=== PATIENT | female | born 2000 | race Two or more races ===

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

== ENCOUNTER 2024-08-24 04:18 | Emergency (ER) | payer MEDICAID, SELFPAY ==
[2024-08-24 04:19] VITALS: BMI 31.8
--- NOTE | 2024-08-24 04:24 | XR_ITS ---
Examination: PA lateral chest 2 views Technique: Upright PA lateral chest 2 views Exam date and time: August 24, 2024 0438 hrs. Comparison October 26, 2004 Indications: Right chest pain beginning 3 days ago Findings: Normal heart size No lobar pneumonia or pulmonary edema The osseous structures are intact Impression: No pneumonia or pulmonary edema
--- NOTE | 2024-08-24 04:24 | EKG_ITS ---
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
--- NOTE | 2024-08-24 04:27 | PD.EDRME ---
Rapid Medical Screening Exam RME Arrival date/time: 08/24/24 04:18 24 yr f present to ED for c.o of right/chest pain for 3 days I have greeted and performed a focused initial assessment of this patient. A comprehensive ED assessment and evaluation of the patient, analysis of all test results, and completion of the medical decision making process will be conducted by additional ED providers. Chief Complaint: Chest Pain Time Seen by Provider: 08/24/24 04:22
[2024-08-24 04:34] VITALS: BP 106/73; PULSE 71; RESP 18; TEMP 36.9; O2SAT 98
[2024-08-24 05:53] LABS: Basophils # (Auto) 0.1 Thou/mm3 (0.0-0.2); Basophils % (Auto) 1 % (0-2.5); Eosinophils # (Auto) 0.1 Thou/mm3 (0.0-0.5); Eosinophils % (Auto) 2 % (0-10); Hematocrit 36.4 % (36.0-46.0); Immature Granulocytes % (Auto) 0 % (0-0); Immature Granulocytes Auto 0.02 Thou/mm3 (0.00-0.00); Lymphocytes # (Auto) 2.2 Thou/mm3 (1.0-4.8); Lymphocytes % (Auto) 27 % (10-50); Mean Corpuscular Hemoglobin 28.5 pg (25.0-35.0); Mean Corpuscular Volume 87 fL (80-100); Monocytes # (Auto) 0.5 Thou/mm3 (0.0-0.8); Monocytes % (Auto) 6 % (0-12); Neutrophils # (Auto) 5.3 Thou/mm3 (1.8-7.7); Neutrophils % (Auto) 65 % (37-80); Nucleated Red Blood Cell % 0 /100 WBC (0); Platelet Count 239 Thou/mm3 (140-440); RDW Standard Deviation 38.7 fL (36.4-46.3); Red Blood Count 4.21 Miln/mm3 (4.00-5.20); White Blood Count 8.2 Thou/mm3 (3.6-11.0)
[2024-08-24 06:31] LABS: HCG,Qualitative Serum Negative
[2024-08-24 06:39] LABS: Alanine Aminotransferase < 7 U/L (10-49); Albumin/Globulin Ratio 1.9 (1.2-2.2); Alkaline Phosphatase 83 U/L (46-116); Anion Gap 7 (7-16); Aspartate Amino Transferase < 10 U/L (0-34); BUN/Creatinine Ratio 10 Ratio (12-20); Bilirubin,Total 0.5 mg/dL (0.3-1.2); Blood Urea Nitrogen 9 mg/dL (9-23); Calcium 9.9 mg/dL (8.3-10.6); Calcium (Corrected) 9.9 mg/dL (8.5-10.1); Carbon Dioxide 29.8 mMol/L (20.0-31.0); Chloride 103 mMol/L (98-107); Creatinine (Component) 0.9 mg/dL (0.6-1.3); Estimated Creatinine Clearance 105.7 mL/min (>60); Globulin 2.7 gm/dL (2.3-3.5); Glucose 105 mg/dL (74-106); Lipase 31 U/L (12-53); Osmolality,Calculated 278 (275-295); Potassium 4.1 mMol/L (3.4-5.1); Sodium 140 mMol/L (136-145); Total Protein 7.7 gm/dL (5.7-8.2); Troponin I < 0.002 ng/mL (0.0-0.045); eGFR > 60 See Note
--- NOTE | 2024-08-24 07:06 | PD.EDCHEST ---
ED Chest Pain RME/HPI General Chief Complaint: Chest Pain Stated Complaint: RIGHT SIDED CHEST PAIN WORSEN W/BREATHING X3 DAYS Time Seen by Provider: 08/24/24 04:22 Arrival date/time: 08/24/24 04:18 24-year-old female presents to the emergency department complains right-sided chest pain worse with movement patient also reports pain with deep inspiration on the right side patient reports no left-sided chest pain no dizziness or weakness Limitations: no limitations RME / HPI RME / HPI narrative: 08/24/24 04:18 24 yr f present to ED for c.o of right/chest pain for 3 days I have greeted and performed a focused initial assessment of this patient. A comprehensive ED assessment and evaluation of the patient, analysis of all test results, and completion of the medical decision making process will be conducted by additional ED providers. Related Data Home Medications ?Medication ?Instructions ?Recorded ?Confirmed prenat.vits,dianna,[id number] 1 tab PO QDAY 11/29/20 12/13/20 Previous Rx's ?Medication ?Instructions ?Recorded acetaminophen 500 mg tablet 1,000 mg (2 x 500 mg) PO Q6H PRN 12/15/20 (Tylenol Extra Strength) pain #120 tabs docusate sodium 100 mg capsule 100 mg PO BID #60 caps 12/15/20 (Colace) ferrous fumarate 325 mg (106 mg 325 mg PO BID #60 tabs 12/15/20 iron) tablet (Ferretts) ibuprofen 600 mg tablet 600 mg PO Q6H PRN pain #120 tabs 12/15/20 ondansetron 4 mg disintegrating 4 mg PO Q8H PRN nausea and 04/27/23 tablet vomiting #30 tabs pantoprazole 40 mg tablet,delayed 40 mg PO QDAY #30 tabs 04/27/23 release (Protonix) cyclobenzaprine 10 mg tablet 10 mg PO TID PRN muscle spasm 10 08/24/24 days #30 tab-caps ibuprofen 800 mg tablet 800 mg PO TID PRN pain #30 tabs 08/24/24 Allergies Allergy/AdvReac Type Severity Reaction Status Date / Time amoxicillin Allergy Severe Anaphylaxis Verified 08/24/24 04:21 Review of Systems Review of Systems Systems Reviewed: All systems reviewed, normal except as documented Constitutional Constitutional: Reports system reviewed and no additional complaints, except as documented, Denies fever(s) and Denies headache(s) Eyes Eyes: Reports system reviewed and no additional complaints, except as documented and Denies blurry vision ENT Ears, Nose, Mouth, and Throat: Reports system reviewed and no additional complaints, except as documented, Denies headache(s), Denies nasal congestion and Denies nasal discharge Cardiovascular Cardiovascular: Reports system reviewed and no additional complaints, except as documented, Reports chest pain, Reports dyspnea and Reports other (Right-sided chest pain, rib pain) Respiratory Respiratory: Reports system reviewed and no additional complaints, except as documented, Denies chest congestion, Denies cough and Reports dyspnea Gastrointestinal Gastrointestinal: Reports system reviewed and no additional complaints, except as documented and Denies abdominal pain Integumentary/Breasts Skin/Breast: Reports system reviewed and no additional complaints, except as documented and Denies rash Neurologic Neurologic: Reports system reviewed and no additional complaints, except as documented, Reports as per HPI and Denies headache(s) Past Medical History Past Medical History NEUROLOGIC: Negative Neurological Disorders, Cerebrovascular Accident or Transient Ischemic Attacks (TIA) CARDIAC: Negative Cardiac Disorders, Myocardial Infarction, Cardiac Arrhythmia, Angina or Congestive Heart Failure RESPIRATORY: Positive Bronchitis (4yrs old); Negative Chronic Obstructive Pulmonary Disease (COPD), Emphysema or Cystic Fibrosis GASTROINTESTINAL: Negative Gastrointestinal Disorders, Liver Cancer, Hepatitis, Pancreatic Cancer or Colorectal Cancer GENITOURINARY: Positive Genitourinary Disorders (uti's); Negative Renal Disease or Prostate Cancer REPRODUCTIVE: Negative Breast Cancer or Testicular Cancer MUSCULOSKELETAL: Negative Musculoskeletal Disorders or Bone Cancer ENT: Negative Blind or Deafness ENDOCRINE: Negative Endocrine Disorders, Diabetes Mellitus Type 1 or Diabetes Mellitus Type 2 HEMATOLOGIC: Positive Blood Disorders and Anemia (this ) PSYCHO/SOCIAL: Positive Anxiety; Negative Psychiatric Problems OTHER HISTORY: Negative Hospitalization, Autoimmune Disease, Down Syndrome, Developmental Delay, Shingles, Falls, Blood Transfusions, Blood Transfusion Reaction, Anesthesia Reactions, Organ Transplant, Chemotherapy, Radiation Therapy, Hyperbaric Therapy, MRSA, VRSA, Vancomycin-Resistant Enterococci, Human Immunodeficiency Virus (HIV), Chicken Pox, Measles, Mumps, Rubella (Bengali Measles), Pertussis, Clostridium Difficile, Cancer, Breast Cancer, Cervical Cancer, Colorectal Cancer, Lung Cancer, Ovarian Cancer, Prostate Cancer or Testicular Cancer Family History FAMILY HISTORY: Positive Family Cancer (grandmother); Negative Family Psychiatric Problems, Family Respiratory Disorders, Family Cardiac Disorders, Family Gastrointestinal Problems, Family Surgery or Family Anesthesia Reaction Surgical History SURGICAL: Negative Section or Organ Transplant Social History SMOKING STATUS: Never smoker SUBSTANCE USE: does not use ED Exam General Limitations: Present no limitations General appearance: Present alert and in no apparent distress Head Head exam: Present atraumatic, normocephalic and normal inspection Eye Eye exam: Present normal appearance, PERRL and EOMI; Absent conjunctival injection ENT ENT exam: Present normal exam, normal oropharynx and mucous membranes moist Neck Neck exam: Present normal inspection, full ROM and trachea midline Chest Chest inspection: Present normal inspection and symmetric chest wall rise Respiratory Respiratory exam: Present normal lung sounds bilaterally; Absent respiratory distress, wheezes, stridor or accessory muscle use Cardiovascular Cardiovascular exam: Present regular rate, normal rhythm and normal heart sounds; Absent bradycardia, tachycardia, irregular rhythm or JVD Abdominal Exam Abdominal exam: Present soft and normal bowel sounds; Absent distention, tenderness, guarding, rebound or rigidity Extremities Exam Extremities exam: Present normal inspection and full ROM Back Exam Back exam: Present normal inspection and full ROM Neurological Exam Neurological exam: Present alert, oriented X3 and CN II-XII intact Psychiatric Psychiatric exam: Present normal affect and normal mood Skin Skin exam: Present warm, dry, intact and normal color Course Quality Measures none Orders Category Date Time Status EKG (ED ONLY) *Do not use* NOW Care 08/24/24 04:24 Completed EKG (ED Only) Stat Exams 08/24/24 04:24 Draft XR chest 2V Stat Exams 08/24/24 04:24 Completed CBC Stat Lab 08/24/24 05:39 Completed CMP [Comprehensive Metabolic Panel] Stat Lab 08/24/24 05:39 Completed HCG,Qualitative Serum Stat Lab 08/24/24 05:39 Completed Lipase Stat Lab 08/24/24 05:39 Completed Troponin I Stat Lab 08/24/24 05:39 Completed Vital Signs Vital signs: Vital Signs Temperature 98.4 F 08/24/24 04:34 Pulse Rate 71 08/24/24 04:34 Respiratory Rate 18 08/24/24 04:34 Blood Pressure 106/73 08/24/24 04:34 Pulse Oximetry (%) 98 08/24/24 04:34 Oxygen Delivery Method Room Air 08/24/24 04:34 O2 saturation 98% room air within normal limits Procedures -ED EKG Interpretation #1: Date of EK08/24/24 Time of EK:37 Rate: 93 Interpretation: Reviewed by me EKG Impression: Normal sinus rhythm, No acute ST-T changes, No ectopy, Sinus arrhythmia, No ischemic changes, Normal QRS, Normal intervals and Normal axis Chest Pain MDM Narrative [facility] Narrative:: 24-year-old female presents to the emergency department complains right-sided chest pain worse with movement patient also reports pain with deep inspiration on the right side patient reports no left-sided chest pain no dizziness or weakness On exam patient well-appearing patient does not appear ill or toxic and in no acute distress Lab work chest x-ray EKG obtained No acute emergent findings noted On exam patient does have pain on palpation of the right side of the ribs and pain worse with movement symptoms not cardiac in nature Patient discharged home in no distress to follow-up with primary care doctor in the next 24 to 48 hours and for any worsening symptoms to return to the ER immediately Patient data External records reviewed:: [facility] previous records Clinical information provided by:: patient Social determinants that could affect healthcare access:: none Patient has the following chronic illnesses:: None How is presenting disease/condition affected by chronic disease/condition?: no chronic disease Evaluation data The following diagnostics were reviewed and interpreted by me:: lab results, radiology exam(s) and EKG tracing(s) Lab and/or radiology exams considered but not ordered:: Labs, radiology, EKG obtained Interpretation Summary: Reviewed by me Medications / Prescriptions Medications or Prescriptions considered but not ordered:: Given Medication administrations:: Given Consultations Consultation(s) initiated? (list below): No Diagnosis Chest Pain Differential Diagnosis: fracture of rib, pneumothorax, st elevation myocardial infarction and costochondritis Most likely diagnosis given after review of the tests above:: Chest pain Admission Indicated Admission indicated?: not indicated Admission Request Was there a request for admission?: No Disposition Plan Disposition Plan: Discharge Discharge Attestation Discharge Attestation: The patient and all family members were given an opportunity to ask questions and understood the discharge instructions. Discharge instructions specifically effects, indications for sooner follow up or return to the emergency department, and the expected course of current diagnosis. Patient condition: Stable Discharge Plan Plan Patient Disposition: HOME (Self Care) Disposition Comment: Stable Prescriptions/Referrals Prescriptions/Med Rec: New cyclobenzaprine 10 mg tablet 10 mg PO TID PRN (Reason: muscle spasm) 10 Days Qty: 30 0RF ibuprofen 800 mg tablet 800 mg PO TID PRN (Reason: pain) Qty: 30 0RF No Action prenat.vits,dianna,[id number] Tablet 1 tab PO QDAY docusate sodium [Colace] 100 mg capsule 100 mg PO BID Qty: 60 0RF acetaminophen [Tylenol Extra Strength] 500 mg tablet 1,000 mg PO Q6H PRN (Reason: pain) Qty: 120 0RF ibuprofen 600 mg tablet 600 mg PO Q6H PRN (Reason: pain) Qty: 120 0RF Ferretts 325 mg (106 mg iron) tablet 325 mg PO BID Qty: 60 0RF pantoprazole [Protonix] 40 mg tablet,delayed release (DR/EC) 40 mg PO QDAY Qty: 30 0RF ondansetron 4 mg tablet,disintegrating 4 mg PO Q8H PRN (Reason: nausea and vomiting) Qty: 30 0RF Referrals: Angie Leon PA-C [Primary Care Provider] - 08/25/24 Problem List Clinical Impression: Right-sided chest wall pain Patient/Caregiver Discharge Instructions Education Materials: Medicine for Pain Additional Instructions: Please follow up with your primary care doctor in the next 24-48hrs for any worsening symptoms return here immediately Print Language: [place] Stand Alone Forms: Jennifer Award Info., Patient Portal Info Letter PA/DIANA Supervising Physician PA/DIANA Supervising Physician: Dr mitchell
== END 2024-08-24 07:40 | disposition home or self-care (01) ==
PROVIDERS: Physician Assistant; Emergency Provider Emergency Medicine; PCP Physician Assistant
DX: R07.1 Chest pain on breathing (principal); I49.8 Other specified cardiac arrhythmias
CPT/HCPCS: 36415; 71046; 80053; 83690; 84484; 84703; 85025; 93005; 99283